=== PATIENT | female | born 1950 | race Caucasian/White ===

== ENCOUNTER 2018-03-01 02:46 | Day surgery (SDC) | payer OTHER, MEDICARE ==
[~2018-03-01] VITALS: Ht 165.1 cm; Wt 50.6 kg
[2018-03-01 03:50] LABS: HEMATOCRIT 35.9 % (36.0-46.0); HEMOGLOBIN 12.3 G/DL (11.9-15.5); MCH 30.7 PG (29.0-34.0); MCHC 34.3 G/DL (30.0-36.0); MCV 89.5 FL (83-99); PLATELET COUNT 269 K/uL (156-360); RBC DIS.WIDTH-CV 12.5 % (11.8-14.6); RBC DIS.WIDTH-SD 41.1 % (39-53); RED BLOOD COUNT 4.01 M/uL (3.80-5.20); WHITE BLOOD COUNT 12.1 K/uL (4.1-10.2)
[2018-03-01 04:09] LABS: TROP-I INTERPRETATION NEGATIVE; TROPONIN-I 0.02 ng/mL (0.0-0.30)
[2018-03-01 04:15] LABS: ALBUMIN 4.4 g/dL (3.2-4.8)
[2018-03-01 04:16] LABS: CHLORIDE 100 mEq/L (99-109); POTASSIUM 3.5 mEq/L (3.7-5.4); SODIUM 141 mEq/L (136-147)
[2018-03-01 04:18] LABS: GLUCOSE 136 mg/dL (70-99); TOTAL PROTEIN 7.5 g/dL (6.4-8.3)
[2018-03-01 04:20] LABS: TOTAL BILIRUBIN 0.3 mg/dL (0.0-1.0)
[2018-03-01 04:21] LABS: ALKALINE PHOSPHATASE 96 IU/L (3-129)
[2018-03-01 04:22] LABS: CREATININE 0.8 mg/dL (0.6-1.3); GFR ESTIMATE (CALCULATED) > 59 mL/min/
[2018-03-01 04:23] LABS: AST (GOT) 22 IU/L (2-34); UREA NITROGEN (BUN) 13 mg/dL (9-23)
[2018-03-01 04:25] LABS: ALT (GPT) 15 IU/L (3-49); LIPASE 44 U/L (1.0-51.0)
[2018-03-01 07:33] LABS: APPEARANCE CLOUDY ((CLEAR)); BILIRUBIN NEGATIVE; BLOOD NEGATIVE; COLOR YELLOW ((YELLOW)); GLUCOSE (STRIP) NEGATIVE; KETONES NEGATIVE; LEUKOCYTES NEGATIVE; NITRITE NEGATIVE; PROTEIN (STRIP) NEGATIVE; SPECIFIC GRAVITY 1.044 (1.000-1.030); UROBILINOGEN 0.2 MG/DL (0.2-1.0)
[2018-03-01 08:15] LABS: AMORPHOUS PHOSPHATE CRYSTALS 3+; BACTERIA NONE SEEN /HPF; EPITHELIAL CELLS RARE /HPF; MUCUS NONE SEEN /LPF; RED BLOOD CELLS NONE SEEN /HPF (0-5); UCUL ADDED? NO; WHITE BLOOD CELLS NONE SEEN /HPF (0-5)
[2018-03-01] MEDS ORDERED: TYLENOL325 M2 PO (09:15)
[2018-03-01] MEDS ORDERED: OMEPRAZOLE20 M2 PO (09:15)
[2018-03-01 14:32] LABS: CARCINOEMBR.ANTIGEN 3.1 NG/ML
[2018-03-01] MEDS ORDERED: OXYCODONE HCL5 MG PO (15:17)
[2018-03-01 17:09] VITALS: BP 122/60
[2018-03-01 19:33] VITALS: BP 117/58
[2018-03-02 00:08] VITALS: BP 124/57
[2018-03-02 03:45] VITALS: BP 130/60
[2018-03-02 06:24] LABS: HEMATOCRIT 38.1 % (36.0-46.0); HEMOGLOBIN 12.6 G/DL (11.9-15.5); MCH 30.4 PG (29.0-34.0); MCHC 33.1 G/DL (30.0-36.0); PLATELET COUNT 222 K/uL (156-360); RBC DIS.WIDTH-CV 13.1 % (11.8-14.6); RBC DIS.WIDTH-SD 44.2 % (39-53); RED BLOOD COUNT 4.14 M/uL (3.80-5.20); WHITE BLOOD COUNT 12.2 K/uL (4.1-10.2)
[2018-03-02 06:47] LABS: ALBUMIN 3.5 G/DL (3.2-4.8); ALKALINE PHOSPHATASE 70 IU/L (3-129); ALT (GPT) 52 IU/L (3-49); AST (GOT) 59 IU/L (2-34); CHLORIDE 105 MEQ/L (99-109); CREATININE 0.6 MG/DL (0.6-1.3); GFR ESTIMATE (CALCULATED) > 59 mL/min/; GLUCOSE 117 mg/dL (70-99); SODIUM 140 MEQ/L (136-147); TOTAL BILIRUBIN 0.5 MG/DL (0.0-1.0); TOTAL PROTEIN 6.3 G/DL (6.4-8.3); UREA NITROGEN (BUN) 6 mg/dL (9-23)
[2018-03-02 06:56] LABS: POTASSIUM 4.6 MEQ/L (3.7-5.4)
[2018-03-02 07:15] VITALS: BP 153/61
[2018-03-02 09:45] LABS: HEMOGLOBIN A1c (GLYCOHEMOGLOB) 5.6 % (Below 5.7)
[2018-03-02 12:25] VITALS: BP 123/60
== END 2018-03-02 12:55 | disposition home or self-care (01) ==
LOC: EME → EDBD 02:46 → EME 02:46 → ENRESERV 11:45 → SDC 13:44 → EME 13:44 → 2SOUTH 13:45 → 2EAST 16:56
PROVIDERS: Physician Assistant; Surgery
DX: K80.66 Calculus of gallbladder and bile duct with acute and chronic cholecystitis without obstruction (principal); K82.8 Other specified diseases of gallbladder; K66.0 Peritoneal adhesions (postprocedural) (postinfection); K65.8 Other peritonitis
CPT/HCPCS: 74177; 76705; 80053; 81003; 82378; 83036; 83605; 83690; 84484; 85027; 87040; 87070; 87075; 87205; 88304; 93005; 99281; 99285; G0378; J0131; J0330; J1100; J1170; J1200; J1956; J2270; J2405; J2710; J2765; J3010; J7030; J7040; J7643; S0030